=== PATIENT | female | born 1970 | race Caucasian/White ===

== ENCOUNTER 2020-06-06 05:22 | Day surgery (SDC) | payer BC, SELFPAY ==
[2020-06-05 12:21] LABS: Hematocrit 43.1 % (37-47); Hemoglobin 13.9 g/dL (12.0-15.0); Mean Corp Hgb Conc 32.3 g/dL (32-36); Mean Corpuscular Volume 83.9 fL (81-99); Mean Platelet Vol. 8.8 fl (6.2-12.0); Platelet Count 271 K/mm3 (150-450); RBC Distribution Width CV 13.2 % (11.6-14.6); RBC Distribution Width SD 40.5 fl (35.1-43.9); Red Blood Count 5.14 M/mm3 (4.2-5.4); White Blood Count 4.5 K/mm3 (4.4-11.0)
[2020-06-05 13:11] LABS: Anion Gap 6 (5-15); BUN 10 mg/dL (7-18); BUN/Creat Ratio 13.6 RATIO (10-20); Calcium,Total 9.8 mg/dL (8.5-10.1); Chloride 101 mmol/L (98-107); Creatinine, Serum 0.74 mg/dL (0.55-1.02); EST Glomerular Filtration Rate 89 mL/min (>60); Est Glom Filt Rate - Afr Amer 108 mL/min (>60); Glucose 88 mg/dL (74-106); Magnesium 1.9 mg/dL (1.6-2.6); Potassium 3.4 mmol/L (3.5-5.1); Sodium Level 138 mmol/L (136-145)
[2020-06-06] VITALS (13 sets, daily range): BP systolic 102–126; BP diastolic 60–85; PULSE 67–102; RESP 16–18; TEMP 36.2–36.9; O2SAT 95–100; BMI 37.7
--- NOTE | 2020-06-06 | HYST_PTH ---
PATIENT: CLAUDIA OLIVA LOC: [facility] U#:[id number] AGE/SX: 49/F ROOM: RE06/06/[address]: Dr. Matthew Ribera MD : 1970 BED: DIS: 06/06/2020 SPEC #: [id number] RECD: 06/06/20 12:30 STATUS: MICHELLE RELizz #: [id number] CARLOS: 06/06/20 00:[address]: Matthew Ribera DEPT: SURGICAL PATHOLOGY RECD BY: Channing Lieberman ENTERED: 06/07/20 07:56 SP TYPE: HYSTERECT OTHR DR: BROOKE Davis Tissues: Uterus, NOS Procedures: Surgery Specimen Level V HEADER OPERATION: ERAS, lap robotic hysterectomy, BSO, cysto PRE-OP DIAGNOSIS: Endometriosis TISSUE SUBMITTED: Cervix, uterus, bilateral fallopian tubes and ovaries MICROSCOPIC DIAGNOSIS Uterus, hysterectomy: Cervix - nabothian cysts, squamous metaplasia and chronic inflammation. Endometrium - weakly proliferative endometrium. Myometrium - adenomyosis. Right ovary - benign physiologic cysts. Right fallopian tube - benign paratubal cyst. Left ovary - benign physiologic cysts. Serous cystadenofibroma. Right fallopian tube - benign paratubal cyst. AM:tim 06/10/2020 COMMENT Case has been reviewed in consultation with Dr. Velez who concurs with the above diagnosis. IDC:JAY MICROSCOPIC DESCRIPTION Slides are reviewed. GROSS DESCRIPTION Received in fixative is one container labeled with the patient's name and designated uterus. The specimen consists of a uterus with attached right and left fallopian tubes, ovaries and cervix. The uterus with cervix measures 11 x 7 x 5.5 cm and weighs 168 gm. The ectocervix is grossly unremarkable. The endocervical canal measures 3.6 cm in length and is grossly unremarkable. The triangular endometrial cavity measures 4 x 3.7 cm. The velvety, carrillo endometrium measures up to 0.2 cm in thickness. The endometrium contains a light pink-carrillo polyp measuring 1 x 0.5 cm in greatest dimension. The myometrium measures 2.5 cm in average thickness and is free of mass lesions. The right fallopian tube measures 6 cm in length and 0.8 cm in average diameter. The soft tissue adjacent to the fimbriated end contains a smooth, glistening cyst containing clear fluid. The cyst measures 1 cm in greatest dimension. The adjacent cystic right ovary measures 2.5 x 2.5 x 1.2 cm. Serial sections reveal multiple cysts containing clear fluid and ranging in size from 0.2 to 1.2 cm in greatest dimension. The left fallopian tube is similar in appearance to the right fallopian tube measuring 8 cm in length and 0.8 cm in average diameter. The fimbrial end contains a smooth, glistening cyst measuring 1 cm in greatest dimension and containing clear fluid. The left cystic ovary measures 3.5 x 2.5 x 1.5 cm. Serial sections reveal multiple cysts ranging in size from 0.5 to 1 cm and containing clear fluid. Mixer [employer] Raw [employer] sections are submitted in?ten cassettes as follows: 1 - anterior cervix, 2 - posterior cervix, 3 - anterior uterine wall with polyp, 4??anterior uterine wall, 5 & 6 - posterior uterine wall, 7 & 8 - right ovary, fallopian tube and paratubal cyst, 9 & 10 - left ovary, fallopian tube and paratubal cyst. / AM:tim 06/07/20 TC:5 CPT: 17857
[2020-06-06 06:04] LABS: Internal QC Validated? YES +Cl - CLEAR BKGD; Pregnancy, Urine Negative Negative
[2020-06-06 06:11] LABS: Bedside Glucose 123 mg/dL (70-110)
[2020-06-06] MEDS: Gabapentin 600 MG Tablet PO (06:22)
[2020-06-06] MEDS: Acetaminophen 500 MG Tablet 1000 MG PO ×2 (06:22→12:50)
[2020-06-06] MEDS: Lactated Ringers 1,000 ML 40 ML IV ×3 (06:22→10:53)
[2020-06-06] MEDS: Cefazolin 2 GM in 0.9% Normal Saline 100 ML IV (07:30)
--- NOTE | 2020-06-06 07:32 | HP.PCM_ITS ---
History and Physical Surgical History and Physical Date: 06/06/2020 Name: CONNIE OLIVA Age: 49 Date of : 1970 Connie Oliva, a 49 year old female 3 0 0 0 3, presents for Robotic assisted Total Laparoscopic Hysterectomy Bilateral Salpingoophorectomy, cystoscopy on June 06, 2020 at 7:30. 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 Pt is new to facility. . 49 years old. LMP 12/11/19. Menses are every 25 days. Pt states she started about a year and a half ago with right lower quadrant pain It went away and then would come back every month around ovulation up until after period. Pt states the pain is a constant ache and sometimes cramping. Pt went to PCP at [facility] where they ordered MRI and US at [facility]. Last pap 2016 WNL. Medications and allergies are up to date. AM Connie has pelvic pain and treatment with Progesterone only pill. She relates sx have not improved at all. Actually she feels sx have worsened. SHe has increased PMS sx, heavier bleeding, and worsening pain. She is ready to proceed with more definitive treatment. Connie is here for RAH/BSO, cystoscopy. Consents signed. MEDICATIONS HISTORY: Patient is also takin. hydrochlorothiazide 25 mg tablet, daily 2. lisinopril 20 mg tablet, daily ALLERGIES: No Known Drug Allergies Infections - Chicken pox Illnesses - hypertension Accidents - None Hospitalizations - Childbirth and see surgery Review of Systems: GENERAL - Denies fever, or chills SKIN - Denies skin changes EYES - Denies visual changes EARS - Denies difficulty hearing NOSE - Denies nasal congestion or bleeding MOUTH - Denies sore throat or difficulty swallowing NECK - Denies pain or swelling RESPIRATORY - Denies shortness of breath or wheezing CARDIOVASCULAR - Denies palpitations or chest pain GASTROINTESTINAL - Denies nausea, vomiting, diarrhea, constipation GENITOURINARY - pelvic pain, heavier and longer bleeding on Prog only pill MUSCULOSKELETAL - Denies joint or muscle pain NEUROLOGICAL - Denies localized numbness or weakness PSYCHIATRIC - increased PMS ENDOCRINE - Denies heat or cold intolerance, weight loss or gain HEMATO-IMMUNOLOGIC - Denies excessive bleeding with cuts SOCIAL HISTORY: Alcohol Use - denies drinking Smoking - denies smoking Diet - moderate, balanced diet Lifestyle - moderate stress lifestyle Exercise - none Seat Belt Use - always Employer - [employer] 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 Illicit Drug Use - denies use of street drugs Sexual Activity - Residence - lives with Hours Worked - 40 hours per week Spouse-Sig Other Name - Sp Spouse-Sig Other Occupation - [employer] Children Name(s) - 4 children, had 1 when Control - Vasectomy FAMILY HISTORY: MENSTRUAL HISTORY: LMP Known?- DefiniteAmount/Duration - 5-6 DAYS, Regularity - Regular, Frequency - monthly days, LMP - 05/08/20, Age Onset Menarche - 12 PAST PREGNANCIES: Total Pregnancies - 3; Full Term Pregnancies - 3; Premature - 0; Abortions, Induced - 0; Abortions, Spontaneous - 0; Ectopics - 0; Multiple Births - 0; Living Children - 3 SURGICAL HISTORY: 1. gallbladder 1998 ; - PHYSICAL EXAM BMI:38.36 Second BP:142/96Sitting, Left arm, large cuff Third BP: 160/100 CONSTITUTIONAL - NAD, well nourished, and well developed SKIN - No rash, lesions, or ulcers HEENT - Normocephalic, PERRLA, EOMI NECK - No nodes, no nuchal rigidity and thyroid normal size and texture LYMPH NODES - Palpation of lymph nodes in neck and groins within normal limits LUNGS - CTA x2 without wheezes, crackles or rales CARDIAC - Regular rate and rhythm without rubs, murmurs, or gallops ABDOMEN - Without hepatosplenomegaly, distention, masses, rebound, or guarding; normal bowel sounds; no hernias EXTREMITIES - No edema or calf tenderness NEUROLOGICAL - Cranial nerves II-XII grossly intact PSYCHIATRIC - A and O to time, place, person, mood and affect External Genital Vagina - non-tender without lesions Urethra/Urethral Meatus - non-tender Bladder - non-tender Vagina - vaginal antonio are pink and moist without loss of rugae and no evidence of atrophy Cervix - without cervical motion tenderness and has normal size and features without evident lesions Uterus - 8 cm in size, mobile and nontender Adnexa - clear without masses or tenderness ASSESSMENT/PLAN: 1. Endometriosis Of Uterus Suspected adenomysis based on cyclical pain and 'bulky' uterus on u/s and CT U/s and CT at , 9.6x5.8cm with bulky appearance, no fibroid, endometrial thickness 14mm, nabothia cyst, ovaries wnl. CT with similar results Discussed suspicion for adeno vs endometriosis that could only be dx surgically. Discussed medical vs surgical options, elects for medical with Progesterone pilll . Progesterone pill after 3 months with no improvement, worsening. Pt missing work from pain With failed improvement with medical management reasonable for RA TLH BSO, cystoscopy. R/b/a given, discussed surgical menopause will consider Climara patch. For repeat u/s preop U/s in office with uterus 10.6x6.4cm with 2.1x1.5cm posterior subserosal fibroid Pt for RA TLH BSO, cysto for Pelvic pain R/b/a of procedure discussed including but no limited to visceral or vascular injury, risk for large incision, bleeding and infection. Pt states understanding and wishes to proceed, all questions answered. Consent signed Pt HTN on HTZ, will hold meds morning of. Anesthesia desires her to t kaylan Lisinopril.
--- NOTE | 2020-06-06 09:53 | OP.PCM_ITS ---
Report of Operation Date of Procedure: 06/06/20 Pre-Operative Diagnosis: Abnormal uterine bleeding, pelvic pain Post-Operative Diagnosis: Abnormal uterine bleeding, pelvic pain Surgery/Procedure Performed:: Robotic assisted total laparoscopic hysterectomy bilateral salpingo-oophorectomy, cystoscopy Description of Surgical Findings:: Surgeon: Matthew Ribera MD Anesthesia: General EBL: 50 cc Urine output: 175 cc IV fluids: 2000 cc Complications: None Specimen: Cervix uterus bilateral fallopian tubes and ovaries Findings: Posterior fibroid and anterior fibroid. Otherwise normal uterus, tubes, and ovaries. Post procedure cystoscopy with no pathology, bilateral ureteral jets noted. Consent: Patient with abnormal uterine bleeding and pelvic pain in need of robotic assisted total laparoscopic hysterectomy bilateral salpingo-oophorectomy, cystoscopy. Patient understands the risk of the procedure include but are not limited to visceral or vascular injury, prolonged hospitalization, blood loss need for transfusion, reoperation. Patient did understand and wish to proceed. All questions were answered consent was signed. Procedure: Patient was brought back to the OR where general anesthesia found to be adequate. 2 g of Ancef were given for infection prophylaxis. Patient was prepared and draped in a dorsolithotomy position with yellowfin stirrups. A weighted speculum placed in the posterior aspect of vagina and cervical dilators were used to dilate the cervix. Uterine manipulator was placed. Varies needle was inserted at the umbilicus water safety test was passed and abdomen was insufflated. Midline supraumbilical 8 mm trocar was inserted. Laparoscope was inserted and above findings were noted. Bilateral 8 mm trochars were inserted under direct visualization. Right upper quadrant 5 mm trocar was inserted. Left upper quadrant with a millimeter trocar was inserted on direct visualization. Robot was docked. Right round ligament was identified cut and cauterized anterior and posterior portions of the broad ligament were dissected. Bladder flap was developed. Right IP ligament and gonadal vessels were dissected and isolated cut and cauterized good hemostasis was noted. Right uterine vessels were skeletonized. Right uterine vessels were cut and cauterized. Lateralized beyond the level of colpotomy cup. Left round ligament was cut and cauterized anterior posterior portions of the broad ligament were dissected. Bladder flap was further developed beyond the level of colpotomy cup. Left IP ligament was dissected cut and cauterized. Good hemostasis noted. Left uterine vessels were skeletonized. Left uterine vessels were cut and cauterized. Lateralized beyond the level of colpotomy cup. Circumferential colpotomy was made. Uterus fallopian tubes and bilateral ovaries were removed, to be sent to pathology. Good hemostasis was noted. Colpotomy was closed in a continuous running fashion. Good hemostasis noted. Abdomen was deflated trochars were removed and good hemostasis noted. Cystoscopy was performed above findings were noted. Laparoscopic incisions were closed in a subcutaneous fashion. Good hemostasis was noted all counts correct x2. Patient tolerated procedure well and brought recovery in stable condition. head of science: Sona Fowler
--- NOTE | 2020-06-06 10:02 | DCINST_ITS ---
Discharge Diet: No Restrictions Discharge Activity: Return to Normal Activity, May Drive, May not drive while taking narcotic pain medications., May Shower, - - No tub baths for 2 weeks May resume sexual activity in: 4-6 weeks Lifting Restrictions: No lifting over 25 pounds for 2 to 3 weeks Call your doctor if your incision/area has: Continuous Slow Oozing, Foul Smelling Discharge Call your doctor if you observe: Fever of 101 or Higher, Shortness of breath, Chest pain Allergies/Adverse Reactions: Allergies No Known Allergies Allergy (Verified 06/06/20 06:13) Medications to take at Discharge Calcium Carbonate/Vitamin D3 [Calcium 500-Vit D3 200 Tablet] 1 ea PO DAILY 05/30/20 Hydrochlorothiazide [Hctz] 25 mg PO DAILY 05/30/20 L.acidoph,Paracasei, B.lactis [Probiotic] 1 ea PO DAILY 05/30/20 Lisinopril [Zestril] 20 mg PO DAILY 05/30/20 Multivitamin 1 ea PO DAILY 05/30/20 Oxycodone [Oxyir] 5 mg PO Q6H PRN PRN 6 Days #24 tablet 06/06/20 The following prescriptions were given: Oxycodone [Oxyir] 5 mg PO Q6H PRN PRN 6 Days #24 tablet PRN Reason: Pain Score 6-10 Transmission Status: Received by [facility] Primary Care Physician: Marisol Vaca PA [Primary Care Provider] - Test Results: Test results from this visit will be discussed in further detail at your follow- up appointment, if applicable. Please Follow Up With: Matthew Ribera MD When: 2 weeks
[2020-06-06] MEDS: Ketorolac 30 MG/ML Syringe IV (10:24)
== END 2020-06-06 18:14 | disposition home or self-care (01) ==
LOC: SDC 05:22 → AC 05:23
PROVIDERS: Anesthesiology; PCP Physician Assistant; Referring Provider Obstetrics & Gynecology; Visit Provider Obstetrics & Gynecology
PROC: 0UT94ZZ Resection of Uterus, Percutaneous Endoscopic Approach (ICD-10-PCS; principal; 2020-06-06 07:10)
DX: D25.2 Subserosal leiomyoma of uterus (principal); N80.0 Endometriosis of uterus; N88.8 Other specified noninflammatory disorders of cervix uteri; N72 Inflammatory disease of cervix uteri; N83.8 Other noninflammatory disorders of ovary, fallopian tube and broad ligament; D27.1 Benign neoplasm of left ovary; N83.201 Unspecified ovarian cyst, right side; I10 Essential (primary) hypertension; K21.9 Gastro-esophageal reflux disease without esophagitis; Z79.899 Other long term (current) drug therapy
CPT/HCPCS: 00840; 58571; S2900; 36415; 80048; 81025; 82962; 83735; 85027; 86850; 86900; 86901; 87426; 88307; C9803; J7120; J2405